=== PATIENT | female | born 1985 | race Caucasian/White ===

== ENCOUNTER → 2016-05-31 | Emergency (ER) | payer OTHER ==
[~2016-05-31] MED LIST: ONDANSETRON 4 MG/2 ML VIAL IVPB ONE; SODIUM CHLORIDE 1,000 ML IV STA
[2016-05-31 09:49] VITALS: BMI 25.0
--- NOTE | 2016-05-31 10:00 | PDOC ---
History of Present Illness - General Chief Complaint: Pain, Acute Stated Complaint: FEVER, VOMITING,ABD PAIN Time Seen by Provider: 05/31/16 09:52 - History of Present Illness Initial Comments: 05/31/16 10:32 The pt is a 30 year old female with a PMH of asthma, hypothyroidism who presents to ED complaining of nausea, vomiting and diarrhea that started yesterday. The pt had multiple episodes of non bilious, non bloody vomiting and diarrhea that was watery, brown. She also reports chills, subjective fever and mild epigastric pain. The patient has 3 children who recently had similar symptoms. She denies recent travel. She denies chest pain, SOB, dysuria, increased frequency, urgency. SHe denies nasal congestion, sore throat, headache , dizziness, weakness. Past History - Past Medical History Allergies/Adverse Reactions: Allergies Allergy/AdvReac Type Severity Reaction Status Date / Time No Known Allergies Allergy Verified 05/31/16 09:46 Home Medications: Ambulatory Orders Levothyroxine [Synthroid -] 100 mcg PO DAILY 05/31/16 Ondansetron HCl [Zofran] 4 mg PO Q6H #12 tablet 05/31/16 Asthma: Yes Thyroid Disease: Yes (hypothyroid) - Psycho/Social/Smoking Cessation Hx Suicidal Ideation: No Smoking Status: No Smoking History: Never smoked Number of Cigarettes Smoked Daily: 0 Review of Systems - Review of Systems Able to Perform ROS?: Yes Comments:: 05/31/16 10:38 REVIEW OF SYSTEMS CONSTITUTIONAL: loss of appetite, subjective fever, chills, Absent: diaphoresis, generalized weakness, weight change HEENT: Absent: rhinorrhea, nasal congestion, throat pain, throat swelling, difficulty swallowing, mouth swelling, ear pain, eye pain, visual changes CARDIOVASCULAR: Absent: chest pain, syncope, palpitations, irregular heart rate, lightheadedness , peripheral edema RESPIRATORY: Absent: cough, shortness of breath, dyspnea with exertion, orthopnea, wheezing, stridor, hemoptysis GASTROINTESTINAL: abdominal pain, Absent: abdominal distension, nausea, vomiting, diarrhea, constipation, melena, hematochezia GENITOURINARY: Absent: dysuria, frequency, urgency, hesitancy, hematuria, flank pain, genital pain MUSCULOSKELETAL: Absent: myalgia, arthralgia, joint swelling, back pain, neck pain SKIN: Absent: rash, itching, pallor NEUROLOGIC: Absent: headache, focal weakness or paresthesias, dizziness, unsteady gait, seizure Is the patient limited Martiniquais proficient: No *Physical Exam - Vital Signs Last Vital Signs Temp Pulse Resp BP Pulse Ox 98.2 F 114 H 19 120/66 98 05/31/16 09:46 05/31/16 09:46 05/31/16 09:46 05/31/16 09:46 05/31/16 09:46 - Physical Exam Comments: 05/31/16 10:39 GENERAL: The patient is awake, alert, and fully oriented, in no acute distress. HEAD: Normal with no signs of trauma. EYES: extraocular movements intact, sclera anicteric, conjunctiva clear. No ptosis. ENT: Ears normal, nares patent, oropharynx clear without exudates, moist mucous membranes. NECK: Trachea midline, full range of motion, supple. LUNGS: Breath sounds equal, clear to auscultation bilaterally, no wheezes, no crackles, no accessory muscle use. HEART: Regular rate and rhythm, S1, S2 without murmur, rub or gallop. ABDOMEN: Soft, mild tenderness in epigastrium, nondistended, normoactive bowel sounds, no guarding, no rebound. EXTREMITIES: 2+ pulses, warm, well-perfused, no edema. NEUROLOGICAL: Normal speech, gait not observed. PSYCH: Normal mood, normal affect. SKIN: Warm, dry, normal turgor, no rashes or lesions noted ED Treatment Course - LABORATORY CBC & Chemistry Diagram: 05/31/16 10:32 05/31/16 10:32 Medical Decision Making - Medical Decision Making 05/31/16 10:40 The pt is a 30 year old female who presents complaining of N/V/D. Based on history of sick contacts we suspect viral gastroenteritis. THe pt was given Zofran, NS 1 L. We ordered CBC, CMP, UA, test, Mg. 05/31/16 11:09 The pt agreed that she has been complaining of chronic feet pain, she denies DM. We added HgA1c. 05/31/16 12:37 HgA1C is 5.8. THe pt is going to be discharged on Zofran and recommendation for clear liquid diet for 24 hrs. *DC/Admit/Observation/Transfer Diagnosis at time of Disposition: Gastroenteritis and colitis, viral - Discharge Dispostion Condition at time of disposition: Improved Admit: No - Prescriptions Prescriptions: Ondansetron HCl [Zofran] 4 mg PO Q6H #12 tablet - Referrals Referrals: Lisa Costello MD [Primary Care Provider] - - Patient Instructions Additional Instructions: Please take Zofran if you have nausea. We recommend that you have liquid diet for next 24 hours and see primary care physician in 2 weeks. If your symptoms worsen come back to emergency room as soon as possible.
--- NOTE | 2016-05-31 10:30 | PDOC ---
Attending Attestation - Resident Resident Name: Reyna Fisher - ED Attending Attestation I have performed the following: I have examined & evaluated the patient, The case was reviewed & discussed with the resident, I agree w/resident's findings & plan - HPI HPI: 05/31/16 10:28 30-year-old female with a history of hypothyroidism She states that her 3 younger children were sick with nausea vomiting diarrhea She states that the past 24 hours she has developed nausea vomiting and diarrhea , same as her 3 younger children had She denies any blood in the vomitus or diarrhea She had fever initially but none now She's having crampy abdominal pain - Physicial Exam PE: 05/31/16 10:28 Physical exam Last Vital Signs Temp Pulse Resp BP Pulse Ox 98.2 F 114 H 19 120/66 98 05/31/16 09:46 05/31/16 09:46 05/31/16 09:46 05/31/16 09:46 05/31/16 09:46 GENERAL: The patient is awake, alert, and fully oriented, and in no apparent distress. HEAD: Normal with no signs of trauma. EYES: sclera anicteric, conjunctiva are normal. ENT: Moist mucous membranes. NECK: Normal range of motion, supple LUNGS: Breath sounds equal, clear to auscultation bilaterally. No wheezes, and no crackles. HEART: Regular rate and rhythm, normal S1 and S2 without murmur, rub or gallop. ABDOMEN: The abdomen is soft with normal bowel sounds There is some upper midepigastric tenderness to palpation without guarding or rebound There is no other abdominal tenderness noted EXTREMITIES: Normal range of motion, no edema. No clubbing or cyanosis. No cords, erythema, or tenderness. NEUROLOGICAL: Cranial nerves II through XII grossly intact. Normal speech, normal gait. PSYCH: Normal mood, normal affect. SKIN: Warm, Dry, normal turgor, no rashes or lesions noted. - Medical Decision Making 05/31/16 12:39 Acute gastroenteritis, most likely viral, as to her children recently ill with the same thing Feeling much better after hydration, tolerating clear liquids Laboratory Results - last 24 hr 05/31/16 05/31/16 05/31/16 10:32 10:32 10:32 WBC 6.3 RBC 4.55 Hgb 11.9 Hct 36.5 MCV 80.3 MCHC 32.5 RDW 15.1 Plt Count 168 MPV 9.3 Sodium 137 Potassium 3.7 Chloride 101 Carbon Dioxide 24 Anion Gap 12 BUN 10 Creatinine 0.9 Creat Clearance w eGFR > 60 Random Glucose 87 Hemoglobin A1c % Calcium 8.7 Magnesium 2.0 Total Bilirubin 0.4 AST 21 ALT 21 Alkaline Phosphatase 69 Total Protein 7.8 Albumin 3.8 Urine Color Urine Appearance Urine pH Ur Specific [place] Urine Protein Urine Glucose (UA) Urine Ketones Urine Blood Urine Nitrite Urine Bilirubin Urine Urobilinogen Ur Leukocyte Esterase Urine RBC Urine WBC Ur Epithelial Cells Urine Mucus Urine HCG, Qual 05/31/16 05/31/16 05/31/16 10:50 10:50 11:23 WBC RBC Hgb Hct MCV MCHC RDW Plt Count MPV Sodium Potassium Chloride Carbon Dioxide Anion Gap BUN Creatinine Creat Clearance w eGFR Random Glucose Hemoglobin A1c % 5.8 Calcium Magnesium Total Bilirubin AST ALT Alkaline Phosphatase Total Protein Albumin Urine Color Dkyellow Urine Appearance Cloudy Urine pH 5.0 Ur Specific [place] 1.032 Urine Protein 1+ H Urine Glucose (UA) Negative Urine Ketones Negative Urine Blood 1+ H Urine Nitrite Negative Urine Bilirubin Negative Urine Urobilinogen Negative Ur Leukocyte Esterase 1+ H Urine RBC 7 Urine WBC 20 Ur Epithelial Cells Moderate Urine Mucus Many Urine HCG, Qual Negative Repeat vital signs Vital Signs - 24 hr 05/31/16 05/31/16 05/31/16 09:46 10:10 13:10 Temperature 98.2 F 98.1 F Pulse Rate 114 H Pulse Rate [ 96 H Right Radial] Respiratory 19 16 Rate Blood Pressure 120/66 Blood Pressure 112/79 [Left Arm] O2 Sat by Pulse 98 100 100 Oximetry (%)
[2016-05-31 10:47] LABS: MCH 26.1 pg (25.7-33.7); MCHC 32.5 g/dl (32.0-36.0); MEAN CELL VOLUME 80.3 fl (80-96); MEAN PLT VOLUME 9.3 fl (7.5-11.1); PLATELET COUNT 168 K/MM3 (134-434); RDW 15.1 % (11.6-15.6); WHITE BLOOD COUNT 6.3 K/mm3 (4.0-10.0)
[2016-05-31 11:08] LABS: URINE APPEARANCE CLOUDY; URINE BILIRUBIN NEGATIVE (NEGATIVE); URINE COLOR DKYELLOW; URINE GLUCOSE (UA) NEGATIVE (NEGATIVE); URINE KETONE NEGATIVE (NEGATIVE); URINE NITRITE NEGATIVE (NEGATIVE); URINE UROBILINOGEN NEGATIVE E.U./dl (0.2-1.0)
[2016-05-31 11:10] LABS: URINE BLOOD 1+ (NEGATIVE); URINE LEUK ESTERASE 1+ (NEGATIVE); URINE PROTEIN 1+ (NEGATIVE)
[2016-05-31 11:14] LABS: ALBUMIN 3.8 g/dl (3.4-5.0); ALK PHOS 69 U/L (45-117); ANION GAP 12 (8-16); BILIRUBIN,TOTAL 0.4 mg/dL (0.2-1.0); CALCIUM 8.7 mg/dL (8.5-10.1); CO2 24 mmol/L (21-32); CREATININE 0.9 mg/dL (0.55-1.02); GLUCOSE,RANDOM 87 mg/dL (74-106); SGOT/AST 21 U/L (15-37); SGPT/ALT 21 U/L (12-78); TOT PROT 7.8 g/dl (6.4-8.2)
[2016-05-31 11:16] LABS: URINE MUCUS MANY; URINE RBC 7 /hpf (0-3); URINE WBC 20 /hpf (3-5)
[2016-05-31 13:11] VITALS: BP 112/79; PULSE 96; TEMP 98.1
== END | disposition home or self-care (01) ==
LOC: JER 09:27
PROC: 3E0337Z Introduction of Electrolytic and Water Balance Substance into Peripheral Vein, Percutaneous Approach (ICD-10-PCS; principal; 2016-05-31)
PROC: 3E033GC Introduction of Other Therapeutic Substance into Peripheral Vein, Percutaneous Approach (ICD-10-PCS; 2016-05-31)
DX: A08.4 Viral intestinal infection, unspecified (principal); E03.9 Hypothyroidism, unspecified; J45.909 Unspecified asthma, uncomplicated; B97.89 Other viral agents as the cause of diseases classified elsewhere
CPT/HCPCS: 36415; 80053; 81003; 81015; 83036; 83735; 84703; 85027; 96361; 96365; 99283-25

== ENCOUNTER 2021-04-04 16:29 | Emergency (ER) | payer OTHER ==
[2021-04-04 16:40] VITALS: BP 104/72; PULSE 85; TEMP 97; BMI 25.8
[2021-04-04] MEDS ORDERED: LORATADINE 10 MG TABLET PO ONE (17:27)
[2021-04-04] MEDS ORDERED: predniSONE 20 MG TABLET (UD) PO ONE (17:27)
[2021-04-04] MEDS ORDERED: FAMOTIDINE 20 MG TABLET PO ONE (17:28)
[2021-04-04] MEDS ORDERED: LORATADINE 10 MG TABLET ONE (17:31)
[2021-04-04] MEDS ORDERED: FAMOTIDINE 20 MG TABLET ONE (17:31)
[2021-04-04] MEDS ORDERED: predniSONE 20 MG TABLET (UD) ONE (17:31)
== END 2021-04-04 18:20 | disposition home or self-care (01) ==
LOC: JERFT 16:29
DX: L50.9 Urticaria, unspecified (principal)
CPT/HCPCS: 99283-25